=== PATIENT | female | born 1970 | race Hispanic/Latino ===

== ENCOUNTER 2020-12-02 23:20 | Emergency (ER) | payer OTHER ==
[~2020-12-02] VITALS: Ht 170.2 cm; Wt 117.9 kg
[2020-12-02 23:41] LABS: BASOPHILS % (AUTO) 0.5 % (0.0-5.0); HEMATOCRIT 44.2 % (36-48); LYMPHOCYTES % (AUTO) 31.1 % (21.0-51.0); MEAN CORPUSCULAR HEMOGLOBIN 30.1 pg (27.0-33.0); MEAN CORPUSCULAR HGB CONC 32.8 g/dL (32.0-36.0); MEAN CORPUSCULAR VOLUME 91.9 fL (79-99); MONOCYTES % (AUTO) 10.4 % (3.0-13.0); NEUTROPHILS % (AUTO) 53.7 % (40.0-77.0); PLATELET COUNT (AUTO) 274 K/uL (130-400); RED BLOOD CELL COUNT(AUTO) 4.81 MIL/uL (4.00-5.50); RED CELL DISTRIBUTION WIDTH 12.3 % (11.0-15.5); WHITE BLOOD COUNT (AUTO) 7.6 K/uL (4.8-10.8)
[2020-12-02 23:57] LABS: ALBUMIN 3.4 g/dL (3.5-5.0); BILIRUBIN,TOTAL 0.2 mg/dL (0.2-1.0); CREATININE 0.8 mg/dL (0.5-1.5); POTASSIUM 4.1 mmol/L (3.5-5.1); TOTAL PROTEIN, SERUM 7.2 g/dL (6.0-8.3)
[2020-12-03 00:13] LABS: B-TYPE NATRIURETIC PEPTIDE 20 pg/mL (0-100)
[2020-12-03 00:43] VITALS: BP 152/78
[2020-12-03 02:13] VITALS: BP 151/72
[2020-12-03 04:58] LABS: THYROID STIMULATING HORMONE 1.13 uIU/mL (0.36-3.74)
[2020-12-03 05:08] LABS: CRP QUANTITATIVE < 2.00 mg/L (0.00-9.0)
[2020-12-03] MEDS ORDERED: BUMETANIDE 1MG/4ML VIAL ONE (06:37)
[2020-12-03] MEDS ORDERED: BUMETANIDE 1MG/4ML VIAL IM SCH (06:38)
[2020-12-03 06:50] VITALS: BP 177/98
[2020-12-03] MEDS ORDERED: FURO40TA7 PO (08:27)
[2020-12-03] MEDS ORDERED: POTA20TA12 PO (08:27)
[2020-12-03 09:16] VITALS: BP 136/75
== END 2020-12-03 09:28 | disposition home or self-care (01) ==
LOC: EDH 23:20
DX: I89.0 Lymphedema, not elsewhere classified (principal); R60.0 Localized edema; E66.01 Morbid (severe) obesity due to excess calories; Z68.41 Body mass index [BMI] 40.0-44.9, adult; Z79.899 Other long term (current) drug therapy
CPT/HCPCS: 36415 ×2; 71045; 80053; 83880; 84439; 84443; 84481; 85025; 86140; 93005; 93970; 96372; 99285; J3490